=== PATIENT | male | born 1975 | race Caucasian/White ===

== ENCOUNTER 2019-05-03 18:37 | Emergency (ER) | payer MEDICAID ==
[~2019-05-03] VITALS: Ht 177.8 cm; Wt 95.3 kg
[2019-05-03 18:40] VITALS: BP_SYST 141
--- NOTE | 2019-05-03 19:34 | NUR ---
Patient to ER bed 6 to gown for evaluation. Side rails up. Report given to Amanuel MOLINA.
--- NOTE | 2019-05-03 19:40 | NUR ---
Pt presents to ER with c/o rash. Pt states one week ago, rash began in R armpit. Pt states he went to PCP and was given permethrin with rash still present. Pt states itching has slightly decreased due benadryl he took. Pt states "rash is more severe in body creases."
--- NOTE | 2019-05-03 19:55 | NUR ---
ER Dr. Slater at bedside examining patient.
[2019-05-03 20:21] VITALS: BP_SYST 134
--- NOTE | 2019-05-03 20:21 | NUR ---
Patient given written and verbal discharge instructions and verbalizes understanding. ER MD discussed with patient the results and treatment provided. Patient in stable condition. ID arm band removed. Rx of Prednisone given. Patient educated on pain management and to follow up with PMD. Pain Scale 0. Opportunity for questions provided and answered. Medication side effect fact sheet provided.
== END 2019-05-03 20:21 | disposition home or self-care (01) ==
LOC: SED 18:37
DX: R21 Rash and other nonspecific skin eruption (principal)
CPT/HCPCS: 99283